=== PATIENT | male | born 1980 | race Caucasian/White ===

== ENCOUNTER 2023-10-07 15:41 | Observation (INO) | payer OTHER ==
[~2023-10-07] VITALS: Ht 167.6 cm; Wt 78.9 kg
--- NOTE | 2023-10-07 11:50 | NUR ---
PATIENT DCd WITH 2 [facility] GUARDS IN WHEELCHAIR. SHACKLES IN PLACE.
[2023-10-07] MEDS ORDERED: VITAMIN D21250 MCG PO (16:42)
[2023-10-07 16:53] LABS: BASOPHILS 0.9 % (0-2); EOSINOPHILS 2.4 % (0-6); HEMATOCRIT 42.4 % (35.0-50.0); HEMOGLOBIN 14.7 g/dL (12.0-18.0); LYMPHOCYTES 26.7 % (24-44); MCHC 34.7 g/dl (30-36); MCV 86.6 fl (81-99); MONOCYTES 5.5 % (0-12); NEUTROPHILS 64.5 % (39-80); PLATELET COUNT 242 K/uL (140-440); RDW 12.6 (10.5-15.0)
[2023-10-07 17:02] LABS: ALBUMIN 4.1 g/dL (3.4-5.0); ALBUMIN/GLOBULIN RATIO 1.17 (1.1-2.4); ANION GAP 14.3 (7-21); BILIRUBIN, TOTAL 0.2 ng/dL (0.2-1.0); BUN/CREATININE RATIO 26.43 (6.0-28.6); CALCIUM 8.7 mg/dL (8.5-10.1); CREATININE, SERUM 0.87 mg/dL (0.70-1.30); POTASSIUM 4.3 mmol/L (3.5-5.1); PROTEIN, TOTAL 7.6 g/dL (6.4-8.2)
[2023-10-07] MEDS ORDERED: HYDROmorphone HCL 1 MG/ML SYR IV PRN (17:30)
[2023-10-07] MEDS ORDERED: LACTATED RINGER'S 1,000 ML IV SCH ×3 (17:30→21:15)
[2023-10-07] MEDS ORDERED: KETOROLAC TROMETHAMINE 30 MG/ML VIAL IV PRN (18:00)
[2023-10-07] MEDS ORDERED: ondansetron HCL 4 MG/2 ML VIAL IV PRN ×2 (18:00→21:15)
[2023-10-07 18:30] VITALS: BP 130/90
[2023-10-07 19:23] LABS: BILIRUBIN, URINE NEGATIVE (negative); BLOOD/HGB, URINE NEGATIVE (Negative); KETONE, URINE NEGATIVE (Negative); LEUK ESTERASE, URINE NEGATIVE (negative); NITRITE, URINE NEGATIVE (negative); PH, URINE 5.5 (5-7)
[2023-10-07] MEDS ORDERED: SUGAMMADEX SODIUM 200 MG/2 ML ML ONE (19:23)
[2023-10-07] MEDS ORDERED: METOCLOPRAMIDE HCL 10 MG/2 ML SDV ONE (19:23)
[2023-10-07] MEDS ORDERED: ROCURONIUM BROMIDE 50 MG/5 ML SYR ONE (19:23)
[2023-10-07] MEDS ORDERED: ondansetron HCL 4 MG/2 ML VIAL ONE (19:23)
[2023-10-07] MEDS ORDERED: KETOROLAC TROMETHAMINE 30 MG/ML VIAL ONE (19:23)
[2023-10-07] MEDS ORDERED: FAMOTIDINE 20 MG/ 2 ML VIAL ONE (19:23)
[2023-10-07] MEDS ORDERED: propofoL 200 MG/20 ML VIAL ONE (19:23)
[2023-10-07] MEDS ORDERED: LACTATED RINGER'S 1,000 ML IV ONE (19:23)
[2023-10-07] MEDS ORDERED: DEXAMETHASONE SOD PHOS 4 MG/ML VIAL ONE (19:23)
[2023-10-07] MEDS ORDERED: fentaNYL citrate 100 MCG/2 ML VIAL ONE (19:23)
[2023-10-07] MEDS ORDERED: SUCCINYLCHOLINE IN 0.9% NACL 200 MG/10 ML SYRINGE ONE (19:23)
[2023-10-07] MEDS ORDERED: LIDOCAINE HCL 4% 5 ML AMP ONE (19:24)
[2023-10-07] MEDS ORDERED: MIDAZOLAM HCL 2 MG/2 ML VIAL ONE (19:24)
--- NOTE | 2023-10-07 19:30 | NUR ---
REPORT RECIEVED FROM DAY SHIFT RN. PATIENT RESTING IN BED WITH 2 OFFICERS IN ROOM. PATIENT REPORTS FEELING ANXIOUS FOR SURGERY. THIS RN PROVIDED THERAPUTIC COMMUNICATION. NEW BAG IV FLUID INFUSING PER ORDER. ASSESSMENT COMPLETE. CALL LIGHT IN REACH.
--- NOTE | 2023-10-07 19:48 | CONS ---
[facility] [address], [place] [address] Signed DATE OF CONSULTATION: 10/07/2023 TIME: 5:45 p.m. PROBLEM: Severely symptomatic incarcerated umbilical hernia. HISTORY OF PRESENT ILLNESS: This 43-year-old white man is a prisoner at [facility]. He yesterday began having inability to reduce a long-standing umbilical hernia previously reducible without problem. He was able to eat breakfast and lunch today, but at some point the hernia was not reducible at all quite markedly tender and increasingly so. He was transferred from [facility] retirement to the emergency room where he was thoroughly evaluated by Dr. Strickland. This showed a markedly inflamed and tender umbilical hernia which is not reducible. LABORATORY STUDIES: Show normal white count of 7.5 with hematocrit of 42.4, and platelets of 242,000. His Chem profile is essentially normal. Urinalysis is pending. Imaging studies were not required on the basis of the clinical findings. PAST MEDICAL HISTORY: Significant for orthopedic operations, but he has never had abdominal surgery or hernia repair in the past. Umbilical hernia known for several months, but previously easily reducible. He previously was a heavy smoker, but has not smoked in the three years of his incarceration. REVIEW OF SYSTEMS: He denies any vomiting, though he did have some nausea previously. He last ate lunch at approximately 12 noon, it is now 5:45 p.m. He denies any shortness of breath or chest pain. He has had no blood per rectum or hematemesis. PHYSICAL EXAMINATION: GENERAL: Well-developed, well-nourished white man, does not look to be systemically toxic, really he is uncomfortable. VITAL SIGNS: Temperature is 98.5, pulse 77, blood pressure 129/94, O2 saturation 98% on room air. NECK: Trachea is midline. HEENT: Mucous membranes slightly dry. CHEST: Clear. HEART: Regular without murmur. Electronically Signed By: AISSATOU GRESHAM MD 10/07/23 1948 PATIENT NAME: MARCOS TUCKER CONSULTATION DATE OF : 76 REPORT #: [id number] PHYSICIAN: AISSATOU GRESHAM MD PCP: NO PRIMARY CARE PHYSICIAN REPORT IS CONFIDENTIAL AND NOT TO BE RELEASED WITHOUT AUTHORIZATION [facility] [address], [place] [address] Signed ABDOMEN: Nondistended. There is an erythematous umbilical hernia quite obviously noted measuring about 4 cm in maximum dimension. It is markedly tender and erythematous and unable to be reduced. EXTREMITIES: Show no clubbing, cyanosis, or edema. ASSESSMENT: The patient has incarcerated umbilical hernia, previously easily reducible. Due to the erythema, tenderness, and so forth, it is highly probable that he has an incarcerated viscus for which expedient repair would be appropriate. I discussed with him the risk of bleeding, infection, recurrence, need for mesh, possibly need for bowel resection (unlikely), and other unforeseen complications related to the intervention. He understands and wished to proceed. Considering he ate at 12 noon today, we will look towards operation at an 8-hour interval from ingestion of food (8:00 p.m. or so). Aissatou Gresham MD JM/MODL /[id number] cc: at [facility] Irving Strickland MD Copies: IRVING STRICKLAND MD ~ Electronically Signed By: AISSATOU GRESHAM MD 10/07/23 1948 PATIENT NAME: MARCOS TUCKER CONSULTATION DATE OF : 76 REPORT #: [id number] PHYSICIAN: AISSATOU GRESHAM MD PCP: NO PRIMARY CARE PHYSICIAN REPORT IS CONFIDENTIAL AND NOT TO BE RELEASED WITHOUT AUTHORIZATION
--- NOTE | 2023-10-07 19:50 | NUR ---
PATIENT OFF FLOOR TO OR WITH OR NURSE.
[2023-10-07] MEDS ORDERED: dexmedeTOMIDine HCl 200 MCG/2 ML VIAL ONE (20:22)
[2023-10-07] MEDS ORDERED: FAMOTIDINE 20 MG/ 2 ML VIAL IV SCH (21:00)
[2023-10-07] MEDS ORDERED: HYDROCODON-ACE1 EA10 PO (21:08)
[2023-10-07] MEDS ORDERED: TYLENOL EXTRA500 MG PO (21:08)
[2023-10-07] MEDS ORDERED: MOTRIN IB200 MG PO (21:08)
--- NOTE | 2023-10-07 21:08 | NUR ---
10/07/232107 JoseMichelle PATIENT WAKES SUDDENLY. ORAL AIRWAY IS REMOVED. HOB IS ELEVATED. PATIENT DENIES PAIN. PILLOW GIVEN TO SPLINT ABDOMEN. OXYGEN SATURATION REMAINS 100% ON 10L VIA MASK. OXYGEN IS REMOVED AT THIS TIME.
[2023-10-07] MEDS ORDERED: ACETAMINOPHEN 500 MG TAB PO PRN (21:15)
[2023-10-07] MEDS ORDERED: HYDROCODONE/ACETA 5/325 TAB PO PRN (21:15)
[2023-10-07] MEDS ORDERED: METOCLOPRAMIDE HCL 10 MG/2 ML SDV IV PRN (21:15)
[2023-10-07] MEDS ORDERED: PROCHLORPERAZINE EDISYLATE 10 MG/2 ML VIAL IV PRN (21:15)
[2023-10-07] MEDS ORDERED: NALOXONE HCL 0.4 MG SYR IV PRN ×2 (21:15)
[2023-10-07] MEDS ORDERED: IBLOOD GLUCOSE TEST STRIP 1 EA TEST VI PRN (21:15)
[2023-10-07] MEDS ORDERED: IBUPROFEN 600 MG TAB PO PRN (21:15)
[2023-10-07] MEDS ORDERED: droPERidol 5 MG/2 ML VIAL IV PRN (21:15)
[2023-10-07] MEDS ORDERED: MORPHINE SULFATE 10 MG/ML VIAL IV PRN (21:15)
[2023-10-07] MEDS ORDERED: fentaNYL citrate 50 MCG/ML SDV IV PRN (21:15)
[2023-10-07] MEDS ORDERED: fentaNYL citrate 50 MCG/ML SDV ONE (21:20)
[2023-10-07 21:53] VITALS: BP 144/86
[2023-10-07] MEDS ORDERED: CEFAZOLIN SODIUM 2 GM/20 ML SYR IV SCH (22:00)
--- NOTE | 2023-10-07 22:00 | NUR ---
PATIENT BACK TO FLOOR FROM OR. REPORT RECIEVED FROM OR NURSE. IV FLUID INFUSING PER ORDER. VS OBTAINED AND RECORDED. PATIENT STATES "I AM HUNGRY IS THAT WEIRD?". BARRY AND DELIA PROVIDED. PATIENT EDUCATED TO EAT SLOW AND NOT OVER DO IT. PATIENT VERBILIZES UNDERSTANDING. NO FURTHER NEEDS AT THIS TIME. 2 GUARDS IN ROOM AT BEDSIDE. CALL LIGHT IN REACH.
[2023-10-07 22:27] VITALS: BP 144/86
[2023-10-07 23:05] VITALS: BP 113/73
[2023-10-07 23:06] VITALS: BP 113/73
--- NOTE | 2023-10-07 23:06 | NUR ---
PATIENT RESTIING IN BED. PATIENT REPORTS TOLERATING FOOD WELL, WITH NO NAUSEA. PATIENT HAS NOT VOIDED YET. VITAL SIGNS OBTAINED AND RECORDED. CALL LIGHT IN REACH.
--- NOTE | 2023-10-07 23:25 | NUR ---
PATIENT UP TO BATHROOM TO VOID 300 mL OF URINE. PATIENT BACK TO BED. IV DCd WITHIN NORMAL LIMITS WITH TIP INTACT. VERBAL AND WRITTEN EDUCATION PROVIDED TO PATIENT. THIS RN ANSWERED PATIENT QUESTIONS. PATIENT VERBALIZED UNDERSTANDING.
--- NOTE | 2023-10-08 00:10 | NUR ---
REPORT GIVEN TO NURSE JACOBSON AT [facility] VIA TELEPHONE. THIS RN ANSWERED ALL QUESTIONS ASKED.
--- NOTE | 2023-10-08 11:36 | OR ---
[facility] [address], [place] [address] Signed DATE OF OPERATION: 10/07/2023 SURGEON: Aissatou Gresham MD PREOPERATIVE DIAGNOSIS: Incarcerated symptomatic umbilical hernia. POSTOPERATIVE DIAGNOSIS: Incarcerated symptomatic umbilical hernia, 2.0 cm fascial defect. PROCEDURE: 1. Reduction of incarcerated umbilical hernia (omentum with resection of hernia sac). 2. Repair of fascial defect 2.0 cm without mesh. ANESTHESIA: General endotracheal, Aissatou Padilla CRNA and local 10 mL of 0.25% Marcaine with epinephrine. INDICATION: This 43-year-old white man is a prisoner at [facility]. He has had a reducible hernia for some amount of time, but today reduction of the hernia was possible and increasing pain, swelling, and ultimately erythema was noted of the site. He presents to the emergency room and was subsequently evaluated by Dr. Pennington. This confirmed an erythematous area of skin at the umbilicus, which was exquisitely tender. It was not reducible. He has been fluid resuscitated, given intravenous antibiotics enough to undergo repair emergently of the hernia. He understands the risk of bleeding, infection, recurrence and so on. Understanding this, he wished to proceed. FINDINGS: The incarcerated viscus was omentum. There was no sign of necrosis to it. The fascial defect was measured at 2 cm. Repair consisted of definition of the hernia sac, opening of it, reducing the omentum, excising the lidocaine, the neck of the hernia sac and reapproximating the fascia transversely as the fascial defect was only 2.0 cm in maximum dimension. There were no complications. A drain was not required nor was mesh implanted. DESCRIPTION OF PROCEDURE: The patient was brought to the operating room, given a general endotracheal anesthetic. Preoperative antibiotic Ancef was given. Sequential compression device stockings were used. The abdomen was clipped and prepared with a chlorhexidine solution and draped Electronically Signed By: AISSATOU GRESHAM MD 10/08/23 1136 PATIENT NAME: MARCOS TUCKER OPERATIVE REPORT DATE OF : 76 REPORT #: [id number] PHYSICIAN: AISSATOU GRESHAM MD PCP: NO PRIMARY CARE PHYSICIAN REPORT IS CONFIDENTIAL AND NOT TO BE RELEASED WITHOUT AUTHORIZATION [facility] [address], [place] [address] Signed sterilely. The erythematous mass at the umbilicus was still not reducible at that point. An incision was made to the left of the umbilical skin fold. Dissection was carried through the dermis with blunt electrocautery dissection defining well, a hernia sac densely adherent to the dermis of the umbilicus. This was freed completely. The hernia sac and its contents were elevated with an Allis clamp and the fascial defect more fully defined. The fascial defect was freed from the underlying hernia sac and once completely freed, the hernia sac was opened, found within it was adherent omentum. The omentum was not ischemic. It was freed from the hernia sac and replaced into the peritoneal cavity. The neck of the hernia sac was secured with running 2-0 Vicryl suture and redundant hernia sac amputated and passed for pathology. The properitoneal space was bluntly free. The hernia defect was measured at 2.0 x 2.0 cm. Under the circumstances of the small hernia and good and healthy fascia, a primary repair without implantation of mesh was deemed most advisable. Interrupted 0 prolene sutures were used in a vertical mattress configuration to transversely reapproximate the fascial defect. 10 mL of 0.25% Marcaine with epinephrine was injected locally. Irrigation was undertaken. Hemostasis was assured with electrocautery. 2-0 Vicryl was used to close the space including pexing of the dermis of the umbilicus to the deepest portion of the fascia. The skin was ultimately closed with running subcuticular 3-0 Vicryl. Steri-Strips were applied as was an Acticoat dressing. The patient was ultimately extubated and transferred to the recovery room in good condition and suffered no complication. Sponge, needle, and instrument counts reported as correct x3. Aissatou Gresham MD JM/MODL /[id number] cc: Medical Department [facility] Irving Pennington MD [facility] Electronically Signed By: AISSATOU GRESHAM MD 10/08/23 1136 PATIENT NAME: MARCOS TUCKER OPERATIVE REPORT DATE OF : 76 REPORT #: [id number] PHYSICIAN: AISSATOU GRESHAM MD PCP: NO PRIMARY CARE PHYSICIAN REPORT IS CONFIDENTIAL AND NOT TO BE RELEASED WITHOUT AUTHORIZATION [facility] [address], [place] [address] Signed Copies: ~ Electronically Signed By: AISSATOU GRESHAM MD 10/08/23 1136 PATIENT NAME: JOVANNYLISBETMARCOS OPERATIVE REPORT DATE OF : 76 REPORT #: [id number] PHYSICIAN: AISSATOU GRESHAM MD PCP: NO PRIMARY CARE PHYSICIAN REPORT IS CONFIDENTIAL AND NOT TO BE RELEASED WITHOUT AUTHORIZATION
== END 2023-10-07 23:50 | disposition home or self-care (01) ==
LOC: ED 15:41 → MS 17:56
PROVIDERS: Emergency Medicine; ADMIT Surgery; ATTEND Surgery
PROC: 0WQF0ZZ Repair Abdominal Wall, Open Approach (ICD-10-PCS; principal; 2023-10-07 20:00)
DX: K42.0 Umbilical hernia with obstruction, without gangrene (principal)
CPT/HCPCS: 36415; 80053; 81003; 83690; 85025; J0330; J0690; J1100; J1170; J1885; J2250; J2405; J2704; J2765; J3010; J3490; J7121